=== PATIENT | female | born 1945 | race Caucasian/White ===

== ENCOUNTER 2023-07-27 20:19 | Emergency (ER) | payer MEDICARE, SELFPAY ==
[2023-07-27 20:20] VITALS: BP 119/53; PULSE 61; RESP 18; TEMP 36.6; O2SAT 99
--- NOTE | 2023-07-27 20:21 | ECG_ITS ---
Measurements Intervals [place] Rate: 61 P: 63 OK: 177 QRS: 51 QRSD: 95 T: 62 QT: 444 QTc: 447 Interpretive Statements SINUS RHYTHM NORMAL ECG NO PREVIOUS ECG AVAILABLE FOR COMPARISON Electronically Signed On 07-28-2023 6:50:56 [employer]RAKE [employer] by Guillermo Ervin D.O.
[2023-07-27] MEDS: ONDANSETRON HCL ODT 4 MG TABLET PO (20:35)
[2023-07-27] MEDS: SODIUM CHLORIDE 0.9% IV 1,000 ML 999 ML IV CONT (20:39)
[2023-07-27 21:03] LABS: Basophils Absolute Auto 0.07 K/mm3 (0.00-0.10); Basophils Percent Auto 0.6 % (0.0-1.0); Eosinophils Absolute Auto 0.18 K/mm3 (0.02-0.50); Eosinophils Percent Auto 1.6 % (1.0-6.0); Hematocrit 32.3 % (35.0-42.0); Hemoglobin 10.1 g/dL (11.7-13.8); Immature Granulocyte Absolute 0.06 K/mm3 (0.00-0.00); Immature Granulocyte Percent A 0.5 % (0.0-0.0); Lymphocytes Percent Auto 13.2 % (18.0-42.0); Mean Corpuscular HGB Conc 31.3 g/dL (32.0-36.0); Mean Corpuscular Hemoglobin 27.7 pg (27.0-31.0); Mean Corpuscular Volume 88.7 fL (78.0-102.0); Mean Platelet Volume 10.9 fl (9.2-11.8); Monocytes Absolute Auto 0.94 K/mm3 (0.10-0.90); Monocytes Percent Auto 8.3 % (2.0-11.0); Neutrophils Absolute Auto 8.6 K/mm3 (1.7-7.2); Neutrophils Percent Auto 75.8 % (50.0-70.0); Platelet Count Result 248 K/mm3 (150-420); Red Blood Count 3.64 M/mm3 (4.20-5.40); Red Cell Distribution Width 16.1 % (11.6-14.4); White Blood Count 11.3 K/mm3 (4.8-10.8)
[2023-07-27 21:23] LABS: Prothrombin Time 11.4 Seconds (9.50-12.10)
[2023-07-27 21:28] LABS: Lactic Acid Reflex 2.5 mmol/L (0.4-2.0)
[2023-07-27 21:30] VITALS: BP 136/88; PULSE 75; RESP 18; O2SAT 96
--- NOTE | 2023-07-27 21:46 | ED.WOUNDLAC ---
HPI - Wound/Laceration General Chief Complaint: Wound/Laceration Stated Complaint: bleeding Time Seen by Provider: 07/27/23 20:20 Source: patient and family Mode of arrival: wheelchair Limitations: no limitations History of Present Illness HPI narrative: this is 78-year-old female with a history of peripheral vascular disease on Eliquis, biopsy earlier this morning of the left upper back area with sutures in place and has been losing blood throughout the day and family was concerned and brought her in. There are sutures intact and there was some oozing and quite a bit of blood on her knees Site and on her clothing. Patient felt some weakness with nausea with some no fainting spells no syncope no fever chills no chest pain or shortness of breath. Onset (ago): hour(s) Location: back Place: home Context: accidental Related Data Home Medications Medication Instructions Recorded Confirmed aspirin 81 mg tablet 81 mg PO DAILY 07/27/23 07/27/23 cilostazol 100 mg tablet 100 mg PO BID 07/27/23 07/27/23 clonidine HCl 0.1 mg tablet 0.1 mg PO BID 07/27/23 07/27/23 clopidogrel 75 mg tablet 75 mg PO DAILY 07/27/23 07/27/23 metoprolol tartrate 25 mg tablet 25 mg PO BID 07/27/23 07/27/23 pantoprazole 40 mg tablet,delayed 40 mg PO BID 07/27/23 07/27/23 release pravastatin 80 mg tablet 80 mg PO HS 07/27/23 07/27/23 trazodone 50 mg tablet 75 mg PO HS 07/27/23 07/27/23 Allergies Allergy/AdvReac Type Severity Reaction Status Date / Time codeine Allergy Unknown Verified 07/27/23 21:04 Review of Systems Review of Systems: All systems reviewed & are unremarkable except as noted in HPI and below PMFSH Past Medical History Medical History Peripheral vascular disease Exam Const: General: healthy appearing and no acute distress Nutritional Appearance: thin HENMT: Head: normal to inspection Neck: Neck: normal visual inspection and no lymphadenopathy Chest: Chest palpation & inspection: normal inspection of the chest Resp: Effort & Inspection: normal respiratory effort Auscultation: clear to auscultation bilaterally Cardio: Rate: regular rate Rhythm: regular rhythm GI: GI Palp: Yes Soft to palpation Back/Spine/Pelvis: Back: no CVA tenderness Skin: Other: left upper back area with sutures intact and had some oozing from the biopsy site. Neuro: General: patient oriented x3 and moves all extremities Psych: Mental Status: mental status grossly normal Course Course Emergency Course: Patient had blood work performed and H&H was stable 10 and 33 respectively and the rest of her blood counts were unremarkable, the patient did have some nausea and vomiting was IV fluids and given Zofran IV. Surgicel was placed on the biopsy site and currently there is no bleeding. The patient and family are okay with being discharged and will follow her primary. Vital Signs Vital signs: Vital Signs Temperature 36.6 C 07/27/23 20:20 Pulse Rate 61 07/27/23 20:20 Respiratory Rate 18 07/27/23 20:20 Blood Pressure 119/53 L 07/27/23 20:20 Pulse Oximetry 99 07/27/23 20:20 Oxygen Delivery Room Air 07/27/23 20:20 Temperature 36.6 C 07/27/23 20:20 Pulse Rate 61 07/27/23 20:20 Respiratory Rate 18 07/27/23 20:20 Blood Pressure 119/53 L 07/27/23 20:20 Pulse Oximetry 99 07/27/23 20:20 Oxygen Delivery Room Air 07/27/23 20:20 MDM - Wound/Laceration Lab Data 07/27/23 20:59 Labs: Lab Results 07/27/23 Range/Units 20:59 WBC 11.3 H (4.8-10.8) K/mm3 RBC 3.64 L (4.20-5.40) M/mm3 Hgb 10.1 L (11.7-13.8) g/dL Hct 32.3 L (35.0-42.0) % MCV 88.7 (78.0-102.0) fL MCH 27.7 (27.0-31.0) pg MCHC 31.3 L (32.0-36.0) g/dL RDW 16.1 H (11.6-14.4) % Plt Count 248 (150-420) K/mm3 MPV 10.9 (9.2-11.8) fl Immature Gran % (Auto) 0.5 H (0.0-0.0) % Neut % (Auto) 75.8 H (50.0-70.0) % Lymph % (Auto)
[2023-07-27 22:40] VITALS: BP 126/66; PULSE 70; RESP 18; TEMP 36.6; O2SAT 97
[2023-07-27 23:10] LABS: Reflex Lactic Acid Yes or No No Lactic Reflex
== END 2023-07-27 22:47 | disposition home or self-care (01) ==
PROVIDERS: Emergency Provider Emergency Medicine; PCP Family Medicine
DX: Z48.01 Encounter for change or removal of surgical wound dressing (principal); L76.32 Postprocedural hematoma of skin and subcutaneous tissue following other procedure; I73.9 Peripheral vascular disease, unspecified; Z79.01 Long term (current) use of anticoagulants; Z79.82 Long term (current) use of aspirin; Z79.899 Other long term (current) drug therapy
CPT/HCPCS: 36415; 83605; 85025; 85610; 85730; 86850; 86880; 86900; 86901; 86902; 93005; 96360; 99283; A9270; J7030